=== PATIENT | female | born 1935 | race Caucasian/White ===

== ENCOUNTER 2017-07-17 09:43 | Emergency (ER) | END 2017-07-17 17:46 | disposition home or self-care (01) ==

== ENCOUNTER → 2018-08-04 | Outpatient (CLI) | payer OTHER ==
[~2018-08-04] MED LIST: ALBU18HF INHALATION; ASPI-481 PO; ATEN50TA PO; POTA8CAP PO; PRED20TA PO; VALS1TAB78 PO
== END | disposition home or self-care (01) ==
LOC: LAB 09:33
PROVIDERS: ATTEND Internal Medicine
DX: R94.39 Abnormal result of other cardiovascular function study (principal)
CPT/HCPCS: 80048

== ENCOUNTER → 2018-08-17 | Outpatient (CLI) | payer OTHER ==
[~2018-08-17] MED LIST changes: +IOHEXOL 100 ML ONE; +NITROGLYCERIN AEROSOL (4.9 GM) ONE; +SOD CHLORIDE 0.9% 100 ML ONE
== END | disposition home or self-care (01) ==
LOC: C/S 10:08
PROVIDERS: ATTEND Internal Medicine
DX: R94.39 Abnormal result of other cardiovascular function study (principal)
CPT/HCPCS: 75571; Q9967; Z7610